=== PATIENT | female | born 1965 | race Caucasian/White ===

== ENCOUNTER → 2017-07-03 | Outpatient (CLI) | payer OTHER | LOC: FIMAGING 12:50 | PROVIDERS: ATTEND Internal Medicine | DX: R06.09 Other forms of dyspnea (principal); R05 Cough; Z77.29 Contact with and (suspected) exposure to other hazardous substances ==

== ENCOUNTER → 2017-07-03 | Outpatient (CLI) | payer OTHER | LOC: FIMAGING 12:42 | PROVIDERS: ATTEND Internal Medicine | DX: N63 Unspecified lump in breast (principal) | CPT/HCPCS: G0204 ==

== ENCOUNTER → 2018-10-01 | Outpatient (CLI) | payer OTHER | LOC: FIMAGING 11:21 | PROVIDERS: ATTEND Surgery | DX: Z12.31 Encounter for screening mammogram for malignant neoplasm of breast (principal) ==

== ENCOUNTER → 2019-05-15 | Outpatient (CLI) | payer OTHER | LOC: FIMAGING 12:03 ==